=== PATIENT | male | born 1955 | race Caucasian/White ===

== ENCOUNTER 2024-09-10 06:42 | Inpatient (IN) ==
--- NOTE | 2024-09-10 06:59 | Emergency Department Note ---
Impression & Plan Hypoxia ADMIT ED Provider Note HPI: History obtained from patient. The patient is a 68-year-old gentleman who presents the emergency department the chief complaint of dyspnea. Patient states last night he began to develop a cough and some shortness of breath. Patient states that overnight he had a lot of difficulty sleeping because every time he laid flat he became more short of breath. Patient denies any chest pain, he states he does feel like a "fullness" in his mid abdomen. Patient denies any vomiting. On arrival here to the ED the patient is hemodynamically stable, he is saturating at 91% on room air on arrival. ROS: - Per HPI Differential Diagnosis: COPD exacerbation with cough, viral upper respiratory infection, pneumonia, acute CHF exacerbation, pleural effusion, pulmonary embolism, amongst other potential pathologies. *Outpatient medications and allergy history reviewed. PE: General: Alert HEENT: Normocephalic, trachea midline Eyes: Extraocular eye movement is intact, no scleral erythema Pulmonary: Diminished bilateral breath sounds with mild expiratory wheezing bilaterally Cardio: Regular rate and rhythm GI: Abdomen is soft to palpation : No suprapubic tenderness MSK: No evidence of trauma or malformation of the extremities, no edema Skin: No evidence of rash Neuro: Alert, no focal deficits Psychiatric: Cooperative INDEPENDENT INTERPRETATIONS: classroom monitor: (As interpreted by myself): - An order was placed for continuous cardiac monitoring - Patient was noted to be in sinus rhythm with a rate of 90 EKG: (As interpreted by myself): Rate: 87 Rhythm: Normal sinus rhythm Intervals: Within normal limits ST changes: No ST elevation Time: 0656 Chest x-ray: (As interpreted by myself): No acute disease Interventions provided in ED: - DuoNeb breathing treatment x 2, IV Solu-Medrol Medical Decision Making: IV was established and lab work obtained, patient was placed on monitoring manager. On arrival here to the ED the patient's oxygen was borderline at 91%, he was placed on nasal cannula oxygen by the bedside RN. He has diminished breath sounds bilaterally with minimal wheezing. Lab work shows a leukocytosis of 14.78, hemoglobin is normal, platelet count is slightly elevated at 450, venous blood gas shows a pH of 7.35 and some mild elevation in pCO2 of 51. CMP does not show any evidence of any critical findings. Troponin is negative, BNP is within normal limits, chest x-ray does not show any evidence of any focal infiltrate. Urinalysis shows trace blood, 1+ ketones, no obvious infection. Viral panel testing is negative. Patient was given DuoNeb breathing treatment here in the ED as well as IV Solu- Medrol. I suspect he has undiagnosed COPD as he states he does have a [id number] history of smoking. On my reassessment the patient stated he was feeling improved, his oxygen was removed and he had desaturations down to 87% within the first several minutes of his nasal cannula being removed. Given this he will be admitted to the hospitalist service for acute hypoxic respiratory failure with COPD exacerbation. Patient was in agreement to this plan, his presentation was discussed with the on-call hospitalist for [facility], Dr. Cordova, and the patient was placed for admission in stable condition. Consultants/Discussions held with other healthcare providers: - Hospitalist, Dr. Cordova Disposition discussion held by myself with: - Patient * CRITICAL CARE TIME: ( 36 ) minutes - Stabilization of patient with acute hypoxia requiring nasal cannula oxygen for correction as room air saturations are at 87%, time spent at the bedside, interpretation of diagnostic studies, discussion with other healthcare providers and arrangement of admission. Diagnosis: 1. Hypoxia, acute 2. COPD exacerbation, acute 3. Leukocytosis, acute, nonspecific Disposition: Admission Stewart Griffin DO Emergency Medicine Past Med/Surg History Problem List (Updated 09/10/24 @ 10:11 by Stewart Griffin DO) Hypoxia (Acute) Dyslipidemia Health care maintenance Eczema Medical History (Updated 09/10/24 @ 10:11 by Stewart Griffin DO) Elevated platelet count Surgical History History of abdominal surgery after appy--to look d/t abominal pain/nausea History of appendectomy History of colonoscopy History of tooth extraction History of wisdom tooth extraction Family History Mother Family history of diabetes mellitus Other No family history of adverse response to anesthesia Social History Smoking Status: Never smoker Tobacco Type: Cigarettes Age Started Using Tobacco: 15; packs per day: 0.5; Cigarettes Per Day: 10 a day; Second Hand Exposure: No; Do You Dip or Chew Tobacco: No; Hx Alcohol Use: Yes Alcohol type: hard liquor Hx Substance Use: No Preferred Language: Bahamian Communication Ability: Effective Visual Impairment: No Limitations Hearing Ability: Normal Scheduling Administrator Required: No Beliefs That Will Affect Care: None marital status: / Current Living Situation: Alone current occupational status: retired How many Children do You have: 2 Feels Safe at Home: Yes Childhood Exposure to Second-Hand Smoke: No Diet: regular caffeine: Yes Dental Care, Regularly: Yes Physical Activity Frequency: Daily Seatbelt Use: always Sunscreen Use: Yes Assistive Devices: Glasses Allergies Allergies Allergy/AdvReac Type Severity Reaction Status Date / Time No Known Allergies Verified 09/10/24 09:43 Home Meds Home Medications Medication Instructions Recorded Confirmed Medical Cannabis 1 puff inhalation DAILY 08/14/23 09/10/24 ibuprofen 200 mg tablet 200 mg PO Q6H PRN Pain 09/10/24 09/10/24 multivitamin with minerals-folic 1 tab PO DAILY 09/10/24 09/10/24 acid 80 mcg chewable tablet (Centrum Adult 50 Plus) Results & Data (ED) Vital Signs Vital Signs - 24 hr 09/10/24 06:46 09/10/24 07:05 09/10/24 07:10 Temperature 36.9 C Temperature Source Temporal Artery Scan Pulse Rate 92 H 88 81 Respiratory Rate 22 19 Respiratory Effort / Characteristics Respiratory Depth Respiratory Pattern Blood Pressure 111/94 147/91 H Blood Pressure Mean 99 109 Pulse Oximetry 91 94 Oxygen Delivery Method Room Air Nasal Cannula Oxygen Flow Rate 2 Sepsis Recent Fever Within 48 Hours No Sepsis New/Unexplained Change in Mental Status No Sepsis Action Taken by Nursing No Action Required Oxygen Flow Rate - Titration Pulse Oximetry Post Tiitration 09/10/24 07:30 09/10/24 07:38 09/10/24 07:39 Temperature Temperature Source Pulse Rate 66 Respiratory Rate 24 Respiratory Effort / Characteristics Spontaneous Respiratory Depth Normal Respiratory Pattern Regular Blood Pressure 144/98 H Blood Pressure Mean 107 Pulse Oximetry 94 89 L Oxygen Delivery Method Nasal Cannula Nasal Cannula Nasal Cannula Oxygen Flow Rate 2 2 Sepsis Recent Fever Within 48 Hours Sepsis New/Unexplained Change in Mental Status Sepsis Action Taken by Nursing Oxygen Flow Rate - Titration 2 Pulse Oximetry Post Tiitration 92 09/10/24 08:30 09/10/24 09:00 Temperature Temperature Source Pulse Rate 69 73 Respiratory Rate 21 21 Respiratory Effort / Characteristics Respiratory Depth Respiratory Pattern Blood Pressure 132/90 150/79 H Blood Pressure Mean 99 114 Pulse Oximetry 93 92 Oxygen Delivery Method Nasal Cannula Nasal Cannula Oxygen Flow Rate 2 2 Sepsis Recent Fever Within 48 Hours Sepsis New/Unexplained Change in Mental Status Sepsis Action Taken by Nursing Oxygen Flow Rate - Titration Pulse Oximetry Post Tiitration Laboratory Data 09/10/24 07:10 09/10/24 07:10 Lab Results 09/10/24 09/10/24 09/10/24 Range/Units 07:10 07:29 09:23 WBC 14.78 H (4.8-10.8) K/ul RBC 4.83 (4.70-6.10) M/uL Hgb 15.7 (14.0-18.0) g/dl Hct 46.4 (42.0-52.0) % MCV 96.1 (80.0-100.0) fL MCH 32.5 (25.0-34.0) pg MCHC 33.8 (32.0-36.0) g/dL RDW Std Deviation 48.6 H (36.4-46.3) fL RDW Coeff of Dennis 13.6 (11.5-14.5) % Plt Count 450 H (130-400) K/uL MPV 8.4 L (9.4-12.4) fL Immature Gran % (Auto) 0.7 % Neut % (Auto) 78.6 % Lymph % (Auto) 10.4 % [place] % (Auto) 7.1 % Eos % (Auto) 2.6 % Baso % (Auto) 0.6 % Neut # (Auto) 11.62 H (1.40-6.50) K/uL Lymph # (Auto) 1.54 (1.20-3.40) K/uL [place] # (Auto) 1.05 H (0.11-0.59) K/uL Eos # (Auto) 0.38 (0.00-0.50) K/uL Baso # (Auto) 0.09 (0.00-0.20) K/uL Immature Gran # (Auto) 0.10 (0.01-0.20) K/uL PT 10.7 (9.0-12.0) Seconds INR 1.0 (0.9-1.1) VBG pH 7.35 L (7.36-7.41) VBG pCO2 51 H (38-50) mmHg VBG pO2 31 mmHg VBG HCO3 28 mmol/L VBG O2 Saturation < 60.0 % VBG Base Excess 1.5 mEq/L Sodium 140 (136-145) mmol/L Potassium 4.3 (3.5-5.1) mmol/L Chloride 105 (98-107) mmol/L Carbon Dioxide 30 (21-32) mmol/L Anion Gap 5 (3-11) BUN 14 (6-23) mg/dl Creatinine 0.86 (0.6-1.4) mg/dl Est Cr Clr Drug Dosing 78.9 ml/min eGFR 95.50 BUN/Creatinine Ratio 16.3 (10-20) Glucose 107 H (70-99(Fasting)) mg/dl Calcium 9.3 (8.6-10.3) mg/dl Total Bilirubin 0.6 (0.2-1.0) mg/dl AST 18 (13-39) U/L ALT 21 (7-52) U/L Alkaline Phosphatase 103 (34-104) U/L Troponin I High Sens 3.2 (0-20) pg/ml B-Natriuretic Peptide 20 (0-100) pg/ml Total Protein 7.9 (6.0-8.3) gm/dl Albumin 4.3 (3.4-5.0) gm/dl Globulin 3.6 (2.5-4.0) gm/dl Albumin/Globulin Ratio 1.2 (0.9-2) Urine Color Yellow Urine Appearance Clear (Clear) Urine pH 5.5 (4.5-7.5) Ur Specific [place] 1.022 (1.000-1.030) Urine Protein Negative (Negative) Urine Glucose (UA) Negative (Negative) Urine Ketones 1+ H (Negative) Urine Blood Trace H (Negative) Urine Nitrite Negative (Negative) Urine Bilirubin Negative (Negative) Urine Urobilinogen Negative (Negative) Ur Leukocyte Esterase Negative (Negative) Urine WBC (Auto) 0-5 (0-5) /hpf Urine RBC (Auto) 6-10 H (0-2) /hpf U Hyaline Cast (Auto) 0-2 (0-2) /lpf U Epithel Cells (Auto) 0-2 (0-2) /hpf Urine Bacteria (Auto) None Seen (None Seen) SARS-CoV-2 (PCR) NEGATIVE (Negative) Influenza Type A (PCR) Negative (Neg) Influenza Type B (PCR) Negative (Neg) RSV (RT-PCR) Negative (Neg) Administered Medications Discontinued Medications Albuterol (Albut/Ipratrop 3mg/0.5mg Neb 3 Ml Vial) 3 ml NEB NOW STA; Protocol Stop: 09/10/24 07:46 Last Admin: 09/10/24 08:07 Dose: 3 ml Documented By: GEE Imaging Data Radiologist's Impression: Chest X-Ray 09/10/24 06:51 EXAM: XR chest 1V portable CLINICAL HISTORY: Dyspnea TECHNIQUE: Radiograph of chest was acquired. COMPARISON: No FINDINGS: The lungs are clear and well-expanded with no pulmonary infiltrate or pleural effusion. The cardiomediastinal silhouette is within normal limits. No acute osseous abnormality. IMPRESSION: 1. No acute cardiopulmonary disease. Electronically signed by Tray Agee 09-10-2024 07:47 AM Discharge Plan Visit Data Chief Complaint: Shortness of Breath/Dyspnea Stated Complaint: SOB, ABD PAIN ED Provider: Stewart Griffin Discharge Problem: Hypoxia Forms Stand Alone Forms: My [employer] Prescriptions Prescriptions: No Action Medical Cannabis 1 puff inhalation DAILY ibuprofen 200 mg Tablet 200 mg PO Q6H PRN (Reason: Pain) Centrum Adult 50 Plus 80 mcg Tablet,Chewable 1 tab PO DAILY Referrals Referrals: Aelx Claros MD [Primary Care Provider] -
[2024-09-10 07:38] LABS: Base Excess VBG 1.5 mEq/L; HCO3 VBG 28 mmol/L; Oxygen Saturation VBG < 60.0 %; PCO2 VBG 51 mmHg (38-50); PO2 VBG 31 mmHg; pH VBG 7.35 (7.36-7.41)
[2024-09-10 07:45] LABS: Basophils # (auto) 0.09 K/uL (0.00-0.20); Basophils % (auto) 0.6 %; Eosinophils # (auto) 0.38 K/uL (0.00-0.50); Eosinophils % (auto) 2.6 %; Hematocrit (blood only) 46.4 % (42.0-52.0); Hemoglobin 15.7 g/dl (14.0-18.0); Immature Granulocytes % (auto) 0.7 %; Lymphocytes # (auto) 1.54 K/uL (1.20-3.40); Lymphocytes % (auto) 10.4 %; Mean Corpuscular Hemoglobin 32.5 pg (25.0-34.0); Mean Corpuscular Hgb Conc 33.8 g/dL (32.0-36.0); Mean Corpuscular Volume 96.1 fL (80.0-100.0); Mean Platelet Volume 8.4 fL (9.4-12.4); Monocytes # (auto) 1.05 K/uL (0.11-0.59); Monocytes % (auto) 7.1 %; Neutrophils # (auto) 11.62 K/uL (1.40-6.50); Neutrophils % (auto) 78.6 %; Platelet Count 450 K/uL (130-400); RDW Coefficient of Variation 13.6 % (11.5-14.5); RDW Standard Deviation 48.6 fL (36.4-46.3); Red Blood Count 4.83 M/uL (4.70-6.10); White Blood Count 14.78 K/ul (4.8-10.8)
--- NOTE | 2024-09-10 07:48 | XRay Report ---
EXAM: XR chest 1V portable CLINICAL HISTORY: Dyspnea TECHNIQUE: Radiograph of chest was acquired. COMPARISON: No FINDINGS: The lungs are clear and well-expanded with no pulmonary infiltrate or pleural effusion. The cardiomediastinal silhouette is within normal limits. No acute osseous abnormality. IMPRESSION: 1. No acute cardiopulmonary disease. Electronically signed by Tray Agee 09-10-2024 07:47 AM
[2024-09-10 07:59] LABS: Albumin Globulin Ratio 1.2 (0.9-2); Albumin Level 4.3 gm/dl (3.4-5.0); BUN Creatinine Ratio 16.3 (10-20); Bilirubin,Total 0.6 mg/dl (0.2-1.0); Calcium 9.3 mg/dl (8.6-10.3); Creatinine Clr Calc Pharmacy 78.9 ml/min; Globulin 3.6 gm/dl (2.5-4.0); Potassium 4.3 mmol/L (3.5-5.1); Total Protein 7.9 gm/dl (6.0-8.3)
[2024-09-10 08:05] LABS: Troponin I High Sensitivity 3.2 pg/ml (0-20)
[2024-09-10] MEDS: ALBUT/IPRATROP 3MG/0.5MG NEB 3 ML VIAL NEB STA ×2 (08:07→10:29)
[2024-09-10 08:09] LABS: Prothrombin Time 10.7 Seconds (9.0-12.0)
[2024-09-10 08:25] LABS: Influenza A virus by PCR Negative (Neg); Influenza B virus by PCR Negative (Neg); RSV by PCR Negative (Neg); SARS CoV2 RNA(COVID-19) Ceph NEGATIVE (Negative)
[2024-09-10 09:51] LABS: Appearance Urine Clear (Clear); Bacteria Urine Automated None Seen (None Seen); Bilirubin Urine Negative (Negative); Blood Urine Trace (Negative); Cast Urine Automated 0-2 /lpf (0-2); Color Urine Yellow; Epithelial Cell Urine Auto 0-2 /hpf (0-2); Glucose Urine UA Negative (Negative); Ketones Urine 1+ (Negative); Leukocyte Esterase Urine Negative (Negative); Nitrite Urine Negative (Negative); Protein Urine Negative (Negative); Specific Gravity Urine 1.022 (1.000-1.030); Urobilinogen Urine Negative (Negative); WBC Urine Automated 0-5 /hpf (0-5); pH Urine 5.5 (4.5-7.5)
[2024-09-10] MEDS: methylPREDNISolone 125 MG/2 ML VIAL IV STA (10:24)
--- NOTE | 2024-09-10 10:33 | Electrocardiogram Report ---
Test Reason : Blood Pressure : */* mmHG Vent. Rate : 87 BPM Atrial Rate : 87 BPM P-R Int : 142 ms QRS Dur : 104 ms QT Int : 354 ms P-R-T Axes : 63 88 65 degrees QTcB Int : 425 ms Normal sinus rhythm Incomplete right bundle branch block Borderline ECG Confirmed by Alex Lares ([id number]) on 09/10/2024 10:33:00 AM Referred By: REFERRED SELF Confirmed By: Alex Lares
--- NOTE | 2024-09-10 12:46 | History & Physical Report ---
Date of Service September 10, 2024 Assessment & Plan (1) Acute exacerbation of chronic obstructive pulmonary disease (COPD): (2) Hypoxia: (3) Hypercapnia: (4) Smoking greater than 40 pack years: Plan 68-year-old man with 18-[id number] smoking history but no known lung disease admitted with acute exacerbation of COPD with hypoxia and mild hypercapnia # acute exacerbation of presumed COPD no formal diagnosis though with 40-year pack history of smoking it is probable that he has COPD. The trigger was of viral URI last week though symptoms have mainly resolved. He continues to have wheezing hypoxia and dyspnea. He has improved with treatment in the ED with steroids and bronchodilators. Admit to [facility] for observation Continue steroids changed to prednisone 40 mg daily Continue bronchodilatorsDuoNeb scheduled every 6 hours and albuterol every 3 hours as needed Supplemental oxygen as needed No clear evidence of pneumonia, procalcitonin pending, he does have a leukocytosis. Ordered azithromycin p.o. 500 mg x 3 days for anti-inflammatory effect and also in case of atypical pulmonary infection outpatient PFTs are indicated # Tobacco [id number] history, more recently has cut down to half a pack a day Ordered 14 mg nicotine patch Counseled cessation and that it is not too late to benefit from 6 smoking cessation with respect to his lung function and cancer risk # thrombocytosisthis may be reactive to chronic hypoxia # possible depression - his a few years ago and he became tearful thinking about her, soon after he told me about his 4 great-grandchidren showed pictures and low mood resolved - continued follow up to see if he would desire/benefit from antidepressant DVT ppx - anticipate short LOS, SCDs ordered History of Present Illness Chief Complaint: shortness of breath Primary Care Provider: Alex Claros MD 68-year-old man without significant medical history except for 40 years of smoking who came in with shortness of breath and hypoxia He was in his usual state of health until about a week ago when he developed URI symptoms of stuffy nose sore throat right ear congestion and cough. He had a subjective fever around that time. URI symptoms have improved except for right ear pain. He is continue to have cough and dyspnea however which has been worsening. He does not have any known lung disease such as asthma or COPD. He has a history of eczema but denies seasonal allergies. He says his mother did from COPD related to smoking. Currently he feels much less short of breath after receiving 125 mg of Solu-Medrol and nebulizers in the ED. He was hypoxic and in the ED he would recurrently desat to 87% on room air, he is doing well on 2 L nasal cannula. He has no chest pain and no history of cardiac problems. Allergies Allergy/AdvReac Type Severity Reaction Status Date / Time No Known Allergies Verified 09/10/24 09:43 Home Medications Medication Instructions Recorded Confirmed Type Medical Cannabis 1 puff inhalation DAILY 08/14/23 09/10/24 History ibuprofen 200 mg tablet 200 mg PO Q6H PRN Pain 09/10/24 09/10/24 History multivitamin with minerals-folic 1 tab PO DAILY 09/10/24 09/10/24 History acid 80 mcg chewable tablet (Centrum Adult 50 Plus) Past Med/Surg History Problem List (Updated 09/10/24 @ 12:37 by Eli Cordova MD) Smoking greater than 40 pack years Hypercapnia Acute exacerbation of chronic obstructive pulmonary disease (COPD) Hypoxia (Acute) Dyslipidemia Health care maintenance Eczema Medical History Elevated platelet count Surgical History History of abdominal surgery after appy--to look d/t abominal pain/nausea History of appendectomy History of colonoscopy History of tooth extraction History of wisdom tooth extraction Family History Mother Family history of diabetes mellitus Other No family history of adverse response to anesthesia Social History Smoking Status: Never smoker Tobacco Type: Cigarettes Age Started Using Tobacco: 15; packs per day: 0.5; Cigarettes Per Day: 10 a day; Second Hand Exposure: No; Do You Dip or Chew Tobacco: No; Hx Alcohol Use: Yes Alcohol type: hard liquor Hx Substance Use: No Preferred Language: Greek Communication Ability: Effective Visual Impairment: No Limitations Hearing Ability: Normal Zigzag Stitcher Required: No Beliefs That Will Affect Care: None marital status: / Current Living Situation: Alone current occupational status: retired How many Children do You have: 2 Feels Safe at Home: Yes Childhood Exposure to Second-Hand Smoke: No Diet: regular caffeine: Yes Dental Care, Regularly: Yes Physical Activity Frequency: Daily Seatbelt Use: always Sunscreen Use: Yes Assistive Devices: Glasses Review of Systems 2 Review of Systems: All systems reviewed & are unremarkable except as noted in HPI & below Physical Exam 2 Physical Exam: PHYSICAL EXAMINATION Last 24h vital signs reviewed, see documentation in flowsheet General: comfortable appearing, no distress HEENT: Normocephalic, atraumatic, pupils round and equal, sclerae anicteric, no conjunctival injection, moist mucus membranes Lungs: mildly increased work of breathing, expiratory wheezes bilaterally anteriorly, clear posteriorly except extremely diminished, reduced air movement prolonged expiratory phase Heart: Regular rate and rhythm, no murmurs. No JVD Abdomen: Soft, nontender, nondistended. Bowel sounds present. Extremities: Warm, dry, well-perfused. No extremity edema. Neuro: Alert and oriented x 4, face symmetric, moves 4 extremities well Psych: Normal affect and behavior Results & Data Results & Data Vital Signs (Past 12 Hours) Vital Signs Temp Pulse Resp BP Pulse Ox O2 Del Method O2 Flow Rate 09/10/24 11:30 160/80 H 09/10/24 11:30 87 24 92 09/10/24 11:21 72 92 09/10/24 11:19 94 Nasal Cannula 3 09/10/24 11:02 88 16 132/87 91 Nasal Cannula 2 09/10/24 10:56 71 09/10/24 10:30 77 14 122/85 96 Nasal Cannula 2 09/10/24 10:00 68 25 H 154/87 H 93 Nasal Cannula 2 09/10/24 09:30 69 22 141/96 H 93 Nasal Cannula 2 09/10/24 09:00 73 21 150/79 H 92 Nasal Cannula 2 09/10/24 08:30 69 21 132/90 93 Nasal Cannula 2 09/10/24 07:39 Nasal Cannula 2 09/10/24 07:38 89 L Nasal Cannula 09/10/24 07:30 66 24 144/98 H 94 Nasal Cannula 2 09/10/24 07:10 81 19 147/91 H 94 Nasal Cannula 2 09/10/24 07:05 88 09/10/24 06:46 36.9 C 92 H 22 111/94 91 Room Air Laboratory Results 09/10/24 07:10 09/10/24 07:10 Diagnostic Findings chest x-rayI personally reviewed the film and agree with the radiologist interpretation that it is clear, no significant findings ECG Additional Comments: I personally reviewed the EKG tracing it shows sinus rhythm with a incomplete right bundle branch block Code Status & VTE Plan VTE Prophylaxis Plan VTE Prophylaxis will be ordered: Yes PG Care Time/CCT Total # of Minutes Spent Total Time Spent with Patient: Total time spent is greater than 50% in coordination of care (as documented) at patient's floor/unit and/or counseling patient: Coding Level of Care Code 58424 INT INP/OBS CARE 375MIN Diagnoses Acute exacerbation of chronic obstructive pulmonary disease (COPD) J44.1 Hypoxia R09.02 Hypercapnia R06.89 Smoking greater than 40 pack years F17.210
--- NOTE | 2024-09-10 12:47 | Communication Note ---
Date of Service: September 10, 2024 UA with trace blood - follow up in primary care
[2024-09-10] MEDS ORDERED: MELATONIN 3 MG TAB PO PRN (13:21)
[2024-09-10] MEDS ORDERED: POLYETHYLENE (MIRALAX) 17 GM PACK PO PRN (13:21)
[2024-09-10] MEDS ORDERED: MAGNESIUM HYDROXIDE SUSP 30 ML UDC PO PRN (13:21)
[2024-09-10] MEDS ORDERED: ALUMINUM/MAGNESIUM SUSP 30 ML UDC PO PRN (13:21)
[2024-09-10] MEDS ORDERED: ACETAMINOPHEN 325 MG TAB PO PRN (13:21)
[2024-09-10] MEDS ORDERED: ONDANSETRON INJ 2 MG/ML 2 ML VIAL IV PRN (13:21)
[2024-09-10] MEDS ORDERED: ALBUTEROL 0.083% NEBU SOLN 3 ML VIAL NEB PRN (13:21)
[2024-09-10] MEDS: ALBUT/IPRATROP 3MG/0.5MG NEB 3 ML VIAL NEB SCH (13:48)
[2024-09-10] MEDS: AZITHROMYCIN 250 MG TAB PO SCH (14:46)
[2024-09-10] MEDS: predniSONE 20 MG TAB PO SCH (14:46)
[2024-09-10] MEDS: NICOTINE 14 MG/24 HR PATCH TD SCH (14:47)
[2024-09-11 06:23] LABS: Hematocrit (blood only) 40.5 % (42.0-52.0); Hemoglobin 14.3 g/dl (14.0-18.0); Mean Corpuscular Hgb Conc 35.3 g/dL (32.0-36.0); Mean Corpuscular Volume 93.5 fL (80.0-100.0); Mean Platelet Volume 8.2 fL (9.4-12.4); Platelet Count 426 K/uL (130-400); RDW Coefficient of Variation 13.2 % (11.5-14.5); RDW Standard Deviation 45.6 fL (36.4-46.3); Red Blood Count 4.33 M/uL (4.70-6.10); White Blood Count 26.61 K/ul (4.8-10.8)
[2024-09-11 07:10] LABS: BUN Creatinine Ratio 20.7 (10-20); Calcium 9.3 mg/dl (8.6-10.3); Potassium 4.4 mmol/L (3.5-5.1)
[2024-09-11 10:27] LABS: C Reactive Protein 3.39 mg/dl (0-0.5)
[2024-09-11] MEDS: cefTRIAXone SODIUM 2,000 MG/50 ML BAG IV SCH (13:22)
--- NOTE | 2024-09-11 15:00 | Hospitalist Progress Note ---
Date of Service September 11, 2024 Assessment & Plan (1) Acute exacerbation of chronic obstructive pulmonary disease (COPD): (2) Hypoxia: (3) Hypercapnia: (4) Smoking greater than 40 pack years: Plan 68-year-old man with 90-fvrw-rjkw smoking history but no known lung disease admitted with acute exacerbation of COPD with hypoxia and mild hypercapnia. He had a viral URI week prior to admission that likely was the trigger of this exacerbation; URI symptoms mainly resolved at this point. His respiratory status has improved after steroids and bronchodilators, though he remains on supplemental O2 to maintain his oxygen sat. #Acute exacerbation of presumed COPD - No formal diagnosis though with 40-year pack history of smoking it is probable that he has COPD Continue prednisone 40 mg daily Continue bronchodilators DuoNeb scheduled every 6 hours and albuterol every 3 hours as needed Continue supplemental O2 to maintain sat >90% No clear evidence of pneumonia, procalcitonin negative, afebrile, but he does have a significant leukocytosis of 26 (could just be from steroids) Continue azithromycin p.o. 500 mg x 3 days and started Ceftriaxone 2 g IV q24h for anti-inflammatory effect Recommend outpatient PFTs #Tobacco smoking 46-[id number]-pwdf history, more recently has cut down to half a pack a day Ordered 14 mg nicotine patch Counseled cessation and that it is not too late to benefit from 6 smoking cessation with respect to his lung function and cancer risk #Thrombocytosis this may be reactive to chronic hypoxia #Possible depression - tearful when discussing his 's passing a few years ago on admission, but mood improved when talking about his great-grandchildren - Continued follow up to see if he would desire/benefit from antidepressant DVT ppx - anticipate short LOS, SCDs ordered Dispo: Anticipate discharge in next 24-48 hours pending respiratory improvement and O2 sats. Recommend follow-up with PCP regarding UA with trace blood. Started IV Ceftriaxone Admission and Anticipated Discharge Date Admission Date: September 10, 2024 Subjective Patient seen and evaluated at bedside. He reports this episode of dyspnea has never happened before. He states that now he feels much improved with his breathing. He still remains on supplemental O2 to maintain his oxygen sat. He is sleeping well and has a good appetite. We discussed his treatment plan. No additional questions or concerns at this time. Physical Exam Physical Exam: General: No acute distress, nondiaphoretic, well-developed, well-nourished. Cardiac: Regular rate and rhythm without murmurs gallops or rubs. Pulm: Reduced air movement with prolonged expiratory wheeze bilaterally. Normal respiratory effort. 90% on 3 L NC. Neuro: A&O x3. No focal neurological deficits. Results & Data Results & Data Vital Signs (Past 12 Hours) Vital Signs Temp Pulse Resp BP Pulse Ox O2 Del Method O2 Flow Rate 09/11/24 13:35 93 H 18 90 Nasal Cannula 3 09/11/24 12:15 98.2 F 87 16 136/74 86 L Nasal Cannula 2 09/11/24 07:37 90 18 89 L Nasal Cannula 2 09/11/24 07:34 98.1 F 87 18 140/76 92 Nasal Cannula 3 09/11/24 07:20 Nasal Cannula 2 Laboratory Results Reviewed CBC Reviewed BMP, chemistries PG Care Time/CCT Total # of Minutes Spent Total Time Spent with Patient: Total time spent is greater than 50% in coordination of care (as documented) at patient's floor/unit and/or counseling patient: Coding Level of Care Code 77813 SUB INP/OBS CARE 3/50MIN Diagnoses Acute exacerbation of chronic obstructive pulmonary disease (COPD) J44.1 Hypoxia R09.02 Hypercapnia R06.89 Smoking greater than 40 pack years F17.210
[2024-09-12 10:07] LABS: Hematocrit (blood only) 41.3 % (42.0-52.0); Mean Corpuscular Hemoglobin 32.5 pg (25.0-34.0); Mean Corpuscular Hgb Conc 33.9 g/dL (32.0-36.0); Mean Corpuscular Volume 95.8 fL (80.0-100.0); Mean Platelet Volume 8.3 fL (9.4-12.4); Platelet Count 411 K/uL (130-400); RDW Coefficient of Variation 13.8 % (11.5-14.5); RDW Standard Deviation 49.2 fL (36.4-46.3); Red Blood Count 4.31 M/uL (4.70-6.10); White Blood Count 16.07 K/ul (4.8-10.8)
--- NOTE | 2024-09-12 11:17 | Hospitalist Progress Note ---
Date of Service September 12, 2024 Assessment & Plan (1) Acute exacerbation of chronic obstructive pulmonary disease (COPD): (2) Hypoxia: (3) Hypercapnia: (4) Smoking greater than 40 pack years: Plan 68-year-old man with [id number] smoking history but no known lung disease admitted with acute exacerbation of COPD with hypoxia and mild hypercapnia. He had a viral URI week prior to admission that likely was the trigger of this exacerbation; URI symptoms mainly resolved at this point. His respiratory status has improved after steroids and bronchodilators, though he remains on supplemental O2 to maintain his oxygen sat. #Acute exacerbation of presumed COPD - No formal diagnosis though with 40-year pack history of smoking it is probable that he has COPD Continue prednisone 40 mg daily, DuoNeb scheduled Q6h and albuterol Q3h PRN, supplemental O2 to maintain sat >90%, incentive spirometer, flutter valve Continue azithromycin p.o. 500 mg x 3 days and Ceftriaxone 2 g IV q24h x 5 days for anti-inflammatory effect No clear evidence of pneumonia, procalcitonin negative, afebrile. Leukocytosis improving, expect it to remain elevated given his steroids. Consider repeat CXR 09/13 if no improvement Recommend outpatient PFTs #Tobacco smoking [id number] history, more recently has cut down to half a pack a day Ordered 14 mg nicotine patch Counseled cessation and that it is not too late to benefit from 6 smoking cessation with respect to his lung function and cancer risk #Thrombocytosis this may be reactive to chronic hypoxia; now down trending #Possible depression - tearful when discussing his 's passing a few years ago on admission, but mood improved when talking about his great-grandchildren - Continued follow up to see if he would desire/benefit from antidepressant DVT ppx - SCDs Dispo: Anticipate discharge in next 24-48 hours pending respiratory improvement and O2 sats. Recommend follow-up with PCP regarding UA with trace blood. Admission and Anticipated Discharge Date Admission Date: September 11, 2024 Subjective Patient seen and evaluated at bedside. He reports some productive cough this morning with white sputum production. He also states that his roommate told him that he was coughing overnight as well. He denies any dyspnea. He has not been using his incentive spirometer or flutter valve, so I reviewed their use with him and encouraged him to use them multiple times throughout the day. He remains on supplemental O2. We discussed his treatment plan, no additional questions, complaints, concerns at this time. Physical Exam Physical Exam: General: No acute distress, nondiaphoretic, well-developed, well-nourished. Cardiac: Regular rate and rhythm without murmurs gallops or rubs. Pulm: Reduced air movement with prolonged expiratory wheeze bilaterally. Normal respiratory effort. 93% on 2 L NC. Neuro: A&O x3. No focal neurological deficits. Results & Data Results & Data Vital Signs (Past 12 Hours) Vital Signs Temp Pulse Pulse Pulse Resp BP Pulse Ox 09/12/24 08:47 09/12/24 07:54 97.7 F 74 16 138/80 93 09/12/24 07:16 78 18 98 09/12/24 01:56 86 18 92 O2 Del Method O2 Flow Rate 09/12/24 08:47 Nasal Cannula 2 09/12/24 07:54 Nasal Cannula 3 09/12/24 07:16 Nasal Cannula 3 09/12/24 01:56 Nasal Cannula 3 Laboratory Results Reviewed CBC, CRP PG Care Time/CCT Total # of Minutes Spent Total Time Spent with Patient: Total time spent is greater than 50% in coordination of care (as documented) at patient's floor/unit and/or counseling patient: Coding Level of Care Code 07082 SUB INP/OBS CARE 2/35MIN Diagnoses Acute exacerbation of chronic obstructive pulmonary disease (COPD) J44.1 Hypoxia R09.02 Hypercapnia R06.89 Smoking greater than 40 pack years F17.210
[2024-09-12 19:33] VITALS: BP 117/67; TEMP 97.5
[2024-09-13 07:15] VITALS: PULSE 78; RESP 18; O2SAT 91
[2024-09-13 08:10] LABS: Hematocrit (blood only) 40.5 % (42.0-52.0); Hemoglobin 14.2 g/dl (14.0-18.0); Mean Corpuscular Hemoglobin 33.2 pg (25.0-34.0); Mean Corpuscular Hgb Conc 35.1 g/dL (32.0-36.0); Mean Corpuscular Volume 94.6 fL (80.0-100.0); Mean Platelet Volume 8.4 fL (9.4-12.4); Platelet Count 437 K/uL (130-400); RDW Coefficient of Variation 13.6 % (11.5-14.5); RDW Standard Deviation 47.7 fL (36.4-46.3); Red Blood Count 4.28 M/uL (4.70-6.10); White Blood Count 13.14 K/ul (4.8-10.8)
--- NOTE | 2024-09-13 13:21 | Discharge Summary ---
Discharge Summary Date of Service September 13, 2024 Principal Dx & Hospital Course #1 = Principal Diagnosis (1) Acute exacerbation of chronic obstructive pulmonary disease (COPD): (2) Hypoxia: (3) Hypercapnia: (4) Smoking greater than 40 pack years: Plan 68-year-old man with [id number] smoking history but no known lung disease admitted with acute exacerbation of COPD with hypoxia and mild hypercapnia ( Acute respiratory failure with hypoxia). He had a viral URI week prior to admission that likely was the trigger of this exacerbation; URI symptoms mainly resolved at this point. His respiratory status has improved after steroids and bronchodilators, and was eventually weaned off supplemental O2 and remained stable on room air. #Acute exacerbation of presumed COPD - No formal diagnosis though with 40-year pack history of smoking it is probable that he has COPD Treated while inpatient with prednisone 40 mg daily, azithromycin p.o. 500 mg, ceftriaxone 2 g IV q24h, DuoNeb scheduled Q6h and albuterol Q3h PRN, supplemental O2 to maintain sat >90%, incentive spirometer, flutter valve Discharged on azithromycin p.o. 500 mg x 2 additional doses for total of 5-day treatment course, prednisone taper (30 mg x 2 days, 20 mg x 2 days, 10 mg x 2 days), albuterol inhaler prn, encouraged continued use of incentive spirometer and flutter valve No evidence of pneumonia, procalcitonin negative, afebrile. Leukocytosis improving, expect it to remain elevated given his steroids. Given no lobar pneumonia noted on CXR, additional antibiotics aside from Azithromycin were deferred on discharge Recommend outpatient PFTs #Tobacco smoking [id number] history, more recently has cut down to half a pack a day Ordered 14 mg nicotine patch while inpatient Counseled cessation and that it is not too late to benefit from 6 smoking cessation with respect to his lung function and cancer risk #Thrombocytosis this may be reactive to chronic hypoxia #Possible depression - tearful when discussing his 's passing a few years ago on admission, but mood improved when talking about his great-grandchildren - Continued follow up to see if he would desire/benefit from antidepressant DVT ppx - SCDs Dispo: Discharged home 09/13 Notes For Next Care Provider Recommend PFTs Recommend further workup for UA with trace blood noted Monitor for possible depression and need for antidepressant Medication Changes From Visit Azithromycin 500 mg daily x 2 days Prednisone taper of 30 mg x 2 days, 20 mg x 2 days, 10 mg x 2 days Albuterol inhaler as needed wheezing, shortness of breath Admission HPI Per Admitting Provider 68-year-old man without significant medical history except for 40 years of smoking who came in with shortness of breath and hypoxia He was in his usual state of health until about a week ago when he developed URI symptoms of stuffy nose sore throat right ear congestion and cough. He had a subjective fever around that time. URI symptoms have improved except for right ear pain. He is continue to have cough and dyspnea however which has been worsening. He does not have any known lung disease such as asthma or COPD. He has a history of eczema but denies seasonal allergies. He says his mother did from COPD related to smoking. Currently he feels much less short of breath after receiving 125 mg of Solu-Medrol and nebulizers in the ED. He was hypoxic and in the ED he would recurrently desat to 87% on room air, he is doing well on 2 L nasal cannula. He has no chest pain and no history of cardiac problems. Discharge Exam General: No acute distress, nondiaphoretic, well-developed, well-nourished. Cardiac: Regular rate and rhythm without murmurs gallops or rubs. Pulm: Slightly diminished throughout, but wheezing now resolved. No crackles or rhonchi. Normal respiratory effort. 91% on room air. Neuro: A&O x3. No focal neurological deficits. Discharge Plan Discharge Items Patient Disposition: Home - Self-Care Reason For Visit: COPD EXACERBATION Discharge Diagnosis: Acute exacerbation of presumed COPD Activity: Resume your previous activity Non-emergency contact: Primary Care Provider Call non-emergency contact if: you have any medication questions and your symptoms worsen Follow-up/Referrals: Alex Claros MD [Primary Care Provider] - 09/20/24 2:00 pm (Follow-up in 1-2 weeks) Diet: Regular Addtl Attending Provider Instructions: Mr. Love, You were admitted to the hospital with an acute exacerbation of presumed COPD, although you do not formally have a diagnosis of COPD. You are treated in the hospital with steroids, breathing treatments, and antibiotics. You no longer are requiring supplemental oxygen. You are being discharged back home with medications to complete your treatment course. Upon discharge from the hospital: * Take Azithromycin 500 mg x 2 days. Take this today, 09/13, when you pick it up from the pharmacy. This is an oral antibiotic that has anti-inflammatory properties. * Complete a prednisone (oral steroid) taper. Take 30 mg (3 pills) x 2 days, then 20 mg (2 pills) x 2 days, then 10 mg (1 pill) x 2 days. Start this tomorrow, 09/14, since you already had your dose of prednisone for today. * Continue using your incentive spirometer and flutter valve as directed. * An albuterol inhaler has been prescribed for you. Take 2 puffs every 4 hours as needed for wheezing or shortness of breath. * Follow-up with your PCP in 1-2 weeks. Recommend that you get further lung testing done to evaluate your lung function and diagnose/monitor your presumed COPD. It was a pleasure taking care of you while you were in the hospital! Pending Studies at Discharge: No Stand-Alone Forms: [facility], Smoking Cessation Medications and DC Order Prescriptions: New azithromycin 500 mg tablet 500 mg PO DAILY Qty: 2 0RF prednisone 10 mg tablet 10 mg PO DIRECTED Qty: 12 0RF Rx Instructions: see taper instructions Continued Medical Cannabis 1 puff inhalation DAILY ibuprofen 200 mg Tablet 200 mg PO Q6H PRN (Reason: Pain) Centrum Adult 50 Plus 80 mcg Tablet,Chewable 1 tab PO DAILY Discharge Orders: Discharge Order (Routine); Ordered 09/13/24 Ordered By: Eli Huitron Admission Data Admit Date/Time: 09/11/24 15:30 Attending Provider: Silverio Perry Admit Provider: Leonides Galvez Primary Care Provider: Alex Claros Other Providers: Eli Cordova Other Interventions: Discharge Summary Assessment (RN) Last Done: 09/13/24 11:41 Hospital Stay Data Consultations 09/10/24 09:58 ED Decision to Admit Stat Pending Results Patient Have Any Pending Studies at Discharge: No Discharge Instructions Given to Patient (Per Discharging Provider) Diego Gilman were admitted to the hospital with an acute exacerbation of presumed COPD, although you do not formally have a diagnosis of COPD. You are treated in the hospital with steroids, breathing treatments, and antibiotics. You no longer are requiring supplemental oxygen. You are being discharged back home with medications to complete your treatment course. Upon discharge from the hospital: * Take Azithromycin 500 mg x 2 days. Take this today, 09/13, when you pick it up from the pharmacy. This is an oral antibiotic that has anti-inflammatory properties. * Complete a prednisone (oral steroid) taper. Take 30 mg (3 pills) x 2 days, then 20 mg (2 pills) x 2 days, then 10 mg (1 pill) x 2 days. Start this tomorrow, 09/14, since you already had your dose of prednisone for today. * Continue using your incentive spirometer and flutter valve as directed. * An albuterol inhaler has been prescribed for you. Take 2 puffs every 4 hours as needed for wheezing or shortness of breath. * Follow-up with your PCP in 1-2 weeks. Recommend that you get further lung testing done to evaluate your lung function and diagnose/monitor your presumed COPD. It was a pleasure taking care of you while you were in the hospital! Total Time Total Time Spent Total Time Spent (In Minutes): Greater than 30 minutes spent completing this discharge process including direct patient care, medication reconciliation, documentation, review of labs and images, and coordination of care. Coding Level of Care Code 70832 INP/OBS DISCH >30 MIN Diagnoses Acute exacerbation of chronic obstructive pulmonary disease (COPD) J44.1 Hypoxia R09.02 Hypercapnia R06.89 Smoking greater than 40 pack years F17.210
== END 2024-09-13 12:22 | disposition home or self-care (01) | DRG 192 ==
LOC: ED 06:42 → 3N 06:42 → SUATTDRO 11:59 → 3N 12:56 → SUATTDRO 09-11 15:30